=== PATIENT | male | born 1995 | race African-American/Black ===

== ENCOUNTER 2016-11-20 14:45 | Emergency (ER) | payer SELFPAY ==
[~2016-11-20] VITALS: Ht 180.3 cm; Wt 75.0 kg
[~2016-11-20 14:45] MED LIST: ALBU0.63; KETO10 PO; PROM25SU8 PO
[2016-11-20 14:48] VITALS: BP 137/83; PULSE 99; RESP 18; TEMP 98.6; O2SAT 98
[2016-11-20] MEDS ORDERED: OLAN5TAB PO ×2 (14:56→15:29)
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
[2016-11-20] MEDS ORDERED: OLANZapine 5 MG TAB PO ONE (15:30)
== END 2016-11-20 15:54 | disposition home or self-care (01) ==
LOC: NEPD 14:45
DX: F20.9 Schizophrenia, unspecified (principal); F31.9 Bipolar disorder, unspecified; Z76.0 Encounter for issue of repeat prescription
CPT/HCPCS: 99283

== ENCOUNTER 2017-03-13 08:12 | Emergency (ER) | payer OTHER ==
[~2017-03-13] VITALS: Ht 180.3 cm; Wt 79.5 kg
[~2017-03-13 08:12] MED LIST changes: -ALBU0.63; -KETO10 PO; +OLAN5TAB PO; -PROM25SU8 PO
[2017-03-13 08:14] VITALS: BP 143/81; PULSE 84; RESP 18; TEMP 98.2; O2SAT 99
[2017-03-13] MEDS ORDERED: BENZ0.5T PO (08:32)
[2017-03-13] MEDS ORDERED: ABIL10TA8 PO (08:32)
--- NOTE | 2017-03-13 08:49 | PD ---
HPI Chief Complaint: Psychiatric Symptoms Time Seen by Provider: 08:27 Travel History International Travel<30 days: No Contact w/Intl Traveler<30days: No Traveled to known affect area: No History of Present Illness HPI 21-year-old male presents to the emergency department requesting medication refills on his psych meds that he ran out of 2 weeks ago. Takes Abilify, benztropine, olanzapine. He has history of schizophrenia, bipolar. He states he's been having running thoughts of suicide that are going to his head approximately one week during the holidays. He says he would not kill himself, but he continues to have ago to his head. Denies having a plan. He denies history of suicidal attempts. Denies homicidal ideations. Says he feels like he is having outer body experience is at times. He reports auditory and visual hallucinations. He has been trying to smoke marijuana without symptom relief. The marijuana has been exacerbating his symptoms. Denies other illicit drug use. Denies alcohol or tobacco use. He said he felt good on his medications and they help control his thoughts and feeling of depression. Severity is moderate to severe. No known allergies. History of asthma. No established primary care provider. Has no other emergent medical complaints today. No other modifying factors or associated signs and symptoms. PFSH Past Medical History Asthma: Yes Bipolar Disorder: Yes Anxiety: Yes Depression: Yes Psychiatric: Yes (bipolar, schizo-affective disorder) Immunizations Current: Yes Past Surgical History Surgical History: No Previous Surgery Social History Alcohol Use: No Tobacco Use: No Substance Use: Yes Allergies-Medications (Allergen,Severity, Reaction): Coded Allergies: No Known Allergies (Verified Allergy, Unknown, 03/13/17) Reported Meds & Prescriptions Reported Meds & Active Scripts Active Olanzapine 5 Mg Tab 5 Mg PO DAILY Reported Benztropine (Benztropine Mesylate) 0.5 Mg Tab 0.5 Mg PO BID Abilify (Aripiprazole) 10 Mg Tab 10 Mg PO DAILY Review of Systems Except as stated in HPI: all other systems reviewed are Neg Physical Exam Narrative GENERAL: Well-nourished, well-developed black male patient, in no acute distress ; pleasant SKIN: Warm and dry. HEAD: Atraumatic. Normocephalic. EYES: Pupils equal and round. ENT: Mucosa pink and moist. NECK: Supple. Trachea midline. CARDIOVASCULAR: Regular rate and rhythm. No murmur appreciated. RESPIRATORY: No accessory muscle use. Clear to auscultation. Breath sounds equal bilaterally. GASTROINTESTINAL: Abdomen soft, non-tender, nondistended. Hepatic and splenic margins not palpable. Bowel sounds are active 4 quadrants. MUSCULOSKELETAL: No obvious deformities. No clubbing. No cyanosis. No edema. NEUROLOGICAL: Awake and alert. Oriented 3. No obvious cranial nerve deficits. Motor grossly within normal limits. Normal speech. Moves all extremities. 5/5 strength to all extremities. PSYCHIATRIC: No delusional thought processes. No hallucinations. Data Data Last Documented VS Vital Signs Date Time Temp Pulse Resp B/P (MAP) Pulse Ox O2 Delivery O2 Flow Rate FiO2 03/13/17 10:35 97.5 79 18 129/68 (88) 99 03/13/17 08:14 Room Air Orders Orders Complete Blood Count With Diff (03/13/17 08:25) Comprehensive Metabolic Panel (03/13/17 08:25) Psych Screen (03/13/17 08:25) Drug Screen, Random Urine (03/13/17 08:25) Alcohol (Ethanol) (03/13/17 08:25) Salicylates (Aspirin) (03/13/17 08:25) Tylenol (Acetaminophen) (03/13/17 08:25) Diet Regular Basic (03/13/17 Lunch) Olanzapine (Zyprexa) (03/13/17 14:00) Ed Discharge Order (03/13/17 14:20) Labs Laboratory Tests Test 03/13/17 09:00 03/13/17 09:30 White Blood Count 6.1 TH/MM3 Red Blood Count 4.78 MIL/MM3 Hemoglobin 15.1 GM/DL Hematocrit 44.0 % Mean Corpuscular Volume 92.2 FL Mean Corpuscular Hemoglobin 31.5 PG Mean Corpuscular Hemoglobin Concent 34.2 % Red Cell Distribution Width 13.2 % Platelet Count 138 TH/MM3 Mean Platelet Volume 9.1 FL Neutrophils (%) (Auto) 46.1 % Lymphocytes (%) (Auto) 40.8 % Monocytes (%) (Auto) 10.2 % Eosinophils (%) (Auto) 2.5 % Basophils (%) (Auto) 0.4 % Neutrophils # (Auto) 2.8 TH/MM3 Lymphocytes # (Auto) 2.5 TH/MM3 Monocytes # (Auto) 0.6 TH/MM3 Eosinophils # (Auto) 0.2 TH/MM3 Basophils # (Auto) 0.0 TH/MM3 CBC Comment DIFF FINAL Differential Comment Blood Urea Nitrogen 12 MG/DL Creatinine 1.37 MG/DL Random Glucose 84 MG/DL Total Protein 7.8 GM/DL Albumin 4.3 GM/DL Calcium Level 8.7 MG/DL Alkaline Phosphatase 109 U/L Aspartate Amino Transf (AST/SGOT) 28 U/L Alanine Aminotransferase (ALT/SGPT) 41 U/L Total Bilirubin 0.4 MG/DL Sodium Level 139 MEQ/L Potassium Level 3.1 MEQ/L Chloride Level 104 MEQ/L Carbon Dioxide Level 26.5 MEQ/L Anion Gap 9 MEQ/L Estimat Glomerular Filtration Rate 79 ML/MIN Salicylates Level LESS THAN 1.7 MG/DL Acetaminophen Level LESS THAN 2.0 MCG/ML Ethyl Alcohol Level LESS THAN 3 MG/DL Urine Opiates Screen NEG Urine Barbiturates Screen NEG Urine Amphetamines Screen NEG Urine Benzodiazepines Screen NEG Urine Cocaine Screen NEG Urine Cannabinoids Screen POS MDM Medical Decision Making Medical Screen Exam Complete: Yes Emergency Medical Condition: Yes Medical Record Reviewed: Yes Differential Diagnosis Medical clearance for psychiatric admission, medication refill, schizophrenia, bipolar disorder, suicidal ideation Narrative Course Patient presents voluntarily for psych evaluation and medication refill. Physical examination and vital signs are essentially unremarkable. Patient has no medical complaints to report. Psych screen has been ordered. If the laboratory results are unremarkable, the patient will be medically cleared for psychiatric evaluation and disposition. 1424: Ana has evaluated the patient cleared the patient for discharge. Patient contracts safety. Denies suicidal or homicidal ideations. Patient will be provided community resource packet to [facility] for follow-up. Has friends and family for support. Patient was medically cleared by alternate provider prior to psych screening. Patient has been evaluated by psychiatry and and is now cleared for discharge. Diagnosis Primary Impression: Medical clearance for psychiatric admission Additional Impression: Medication refill Referrals: [facility] (Out patient) [facility] Primary Care Physician Psychiatrist Rodo [facility] Additional Instructions: Contract safety to your self and others Follow-up with psychiatry Follow-up with primary care provider Follow-up with Alexis Daley Return to the emergency department immediately with worsening of symptoms Med/Other Pt SpecificInfo: No Change to Meds, No Meds Exist/No RX given Disposition: 01 DISCHARGE HOME Condition: Stable Jaelyn Bacon Mar 13, 2017 08:49
[2017-03-13 09:10] LABS: AUTOMATED NEUTROPHIL # 2.8 TH/MM3 (1.8-7.7); BASOPHIL % 0.4 % (0.0-2.0); EOSINOPHIL # 0.2 TH/MM3 (0-0.4); EOSINOPHIL % 2.5 % (0.0-4.0); HEMOGLOBIN 15.1 GM/DL (13.0-17.0); LYMPH % 40.8 % (9.0-44.0); LYMPHOCYTE # 2.5 TH/MM3 (1.0-4.8); MEAN CELL VOLUME 92.2 FL (80.0-100.0); MEAN CORPUSCULAR HEMOGLOBIN 31.5 PG (27.0-34.0); MEAN CORPUSCULAR HGB CONC 34.2 % (32.0-36.0); MEAN PLATELET VOLUME 9.1 FL (7.0-11.0); MONO % 10.2 % (0.0-8.0); MONOCYTE # 0.6 TH/MM3 (0-0.9); NEUT % 46.1 % (16.0-70.0); PLATELET COUNT 138 TH/MM3 (150-450); RED BLOOD COUNT 4.78 MIL/MM3 (4.50-5.90); RED CELL DISTRIBUTION WIDTH 13.2 % (11.6-17.2); WHITE BLOOD COUNT 6.1 TH/MM3 (4.0-11.0)
[2017-03-13 09:34] LABS: ALKALINE PHOSPHATASE 109 U/L (45-117); ALT (GPT) 41 U/L (12-78); TOTAL BILIRUBIN ADULT 0.4 MG/DL (0.2-1.0); TOTAL PROTEIN 7.8 GM/DL (6.4-8.2)
[2017-03-13 09:36] LABS: ALBUMIN 4.3 GM/DL (3.4-5.0); AST (GOT) 28 U/L (15-37); BICARBONATE 26.5 MEQ/L (21.0-32.0); BLOOD UREA NITROGEN 12 MG/DL (7-18); CALCIUM 8.7 MG/DL (8.5-10.1); CHLORIDE 104 MEQ/L (98-107); CREATININE 1.37 MG/DL (0.60-1.30); GLOMERULAR FILTRATION RATE 79 ML/MIN (>89); GLUCOSE,RANDOM 84 MG/DL (74-106); SODIUM (NA) 139 MEQ/L (136-145)
[2017-03-13 09:46] LABS: ACETAMINOPHEN LESS THAN 2.0 MCG/ML (10.0-30.0)
[2017-03-13 10:35] VITALS: BP 129/68; PULSE 79; RESP 18; TEMP 97.5; O2SAT 99
--- NOTE | 2017-03-13 13:41 | PD ---
History of Present Illness Chief Complaint: Psychiatric Symptoms Time Seen by Provider: 13:30 Travel History International Travel<30 Days: No Contact w/Intl Traveler<30days: No Known affected area: No Legal Status Legal Status: Voluntary History of Present Illness: History of Present Illness HPI 21-year-old male with reported history of bipolar disorder and schizoaffective who presents to the emergency department requesting medication refills on his psych meds that he ran out of 2 weeks ago. He also reports that he had an appointment at [facility] earlier this week but failed to make that appointment. He reported to ED provider that he is prescribed Abilify Takes Abilify, benztropine, olanzapine. He reported to the psychiatric screen her that he wanted to see how he would function without the medication and that's why he stopped it. He has also been smoking marijuana. Electronic medical record is reviewed. The patient was last seen in November 2016 and at that time he presented for medication refill as well. Current toxicology is positive for cannabinoids. Patient is seen as J pod. He was sleeping but awakens fairly easily with verbal stimuli. He is dressed in [facility] with fair hygiene and grooming. He is alert, oriented, cooperative and engaging. Speech is clear and logical. There is no evidence of any unstable mental illness. There is no evidence of any hallucinations, no delusions and no paranoia. No betsy or hypomania symptoms are observed. The patient denies any suicidal or homicidal ideation. He does not report any other complaints except coming to the hospital for a medication refill. He also admits that he functions better when he does have his medication. PFSH Past Medical History Asthma: Yes Bipolar Disorder: Yes Anxiety: Yes Depression: Yes Psychiatric: Yes (bipolar, schizo-affective disorder) Immunizations Current: Yes Past Surgical History Surgical History: No Previous Surgery Psychiatric History Psychiatric History Hx Psychiatric Treatment: Diagnosed with bipolar disorder and schizoaffective disorder in 2014. History of Inpatient Treatment: No Guns or firearms in home: No Social History Single, never . Student at [employer]. He is a sophomore and plans on majoring in criminal Justice. The patient lives with his mother when he is on school break. Hx Alcohol Use: No Hx Tobacco Use: No Hx Substance Use: Yes (marajuana occasional-last 3 days ago) Substance Use Type: Marijuana Hx of Substance Use Treatment: No Family Psychiatric History Negative Allergies-Medications (Allergen,Severity, Reaction): Coded Allergies: No Known Allergies (Verified , 11/20/16) Reported Meds & Prescriptions Reported Meds & Active Scripts Active Olanzapine 5 Mg Tab 5 Mg PO DAILY Reported Benztropine (Benztropine Mesylate) 0.5 Mg Tab 0.5 Mg PO BID Abilify (Aripiprazole) 10 Mg Tab 10 Mg PO DAILY Review of Systems Except as stated in HPI: all other systems reviewed are Neg Mental Status Examination Appearance: Appropriate (in [facility]) Consciousness: Alert Orientation: x4 Motor Activity: Normal gait Speech: Unremarkable Language: Adequate Fund of Knowledge: Adequate Attention and Concentration: Adequate Memory: Unremarkable Mood: Appropriate Affect: Appropriate Thought Process & Associations: Intact Thought Content: Appropriate Hallucination Type: None Delusion Type: None Suicidal Ideation: No Suicidal Plan: No Suicidal Intention: No Homicidal Ideation: No Homicidal Plan: No Homicidal Intention: No Insight: Fair Judgment: Adequate MDM Medical Decision Making Medical Record Reviewed: Yes Assessment/Plan 21-year-old male with reported history of schizoaffective disorder bipolar type who presents to the emergency department on a voluntary basis requesting a medication refill. He reports he's been out of his medications for the past 2 weeks. Patient failed to show up for an appointment at [facility] for initiation of treatment last week. The patient at this time does not present any acute exacerbation of his symptoms. He is not actively psychotic. He is not manic. He is not suicidal or homicidal. He is cognitively intact. Does not appear to be significantly depressed. Extensive psychoeducation is provided. He is encouraged to follow-up with [facility] or his school health services for continued outpatient treatment. Psychiatrically clear for discharge from emergency department Orders Orders Complete Blood Count With Diff (03/13/17 08:25) Comprehensive Metabolic Panel (03/13/17 08:25) Psych Screen (03/13/17 08:25) Drug Screen, Random Urine (03/13/17 08:25) Alcohol (Ethanol) (03/13/17 08:25) Salicylates (Aspirin) (03/13/17 08:25) Tylenol (Acetaminophen) (03/13/17 08:25) Diet Regular Basic (03/13/17 Lunch) Results Vital Signs Date Time Temp Pulse Resp B/P (MAP) Pulse Ox O2 Delivery O2 Flow Rate FiO2 03/13/17 10:35 97.5 79 18 129/68 (88) 99 03/13/17 08:14 98.2 84 18 143/81 (101) 99 Room Air Laboratory Tests Test 03/13/17 09:00 03/13/17 09:30 White Blood Count 6.1 Red Blood Count 4.78 Hemoglobin 15.1 Hematocrit 44.0 Mean Corpuscular Volume 92.2 Mean Corpuscular Hemoglobin 31.5 Mean Corpuscular Hemoglobin Concent 34.2 Red Cell Distribution Width 13.2 Platelet Count 138 Mean Platelet Volume 9.1 Neutrophils (%) (Auto) 46.1 Lymphocytes (%) (Auto) 40.8 Monocytes (%) (Auto) 10.2 Eosinophils (%) (Auto) 2.5 Basophils (%) (Auto) 0.4 Neutrophils # (Auto) 2.8 Lymphocytes # (Auto) 2.5 Monocytes # (Auto) 0.6 Eosinophils # (Auto) 0.2 Basophils # (Auto) 0.0 CBC Comment DIFF FINAL Differential Comment Blood Urea Nitrogen 12 Creatinine 1.37 Random Glucose 84 Total Protein 7.8 Albumin 4.3 Calcium Level 8.7 Alkaline Phosphatase 109 Aspartate Amino Transf (AST/SGOT) 28 Alanine Aminotransferase (ALT/SGPT) 41 Total Bilirubin 0.4 Sodium Level 139 Potassium Level 3.1 Chloride Level 104 Carbon Dioxide Level 26.5 Anion Gap 9 Estimat Glomerular Filtration Rate 79 Salicylates Level LESS THAN 1.7 Acetaminophen Level LESS THAN 2.0 Ethyl Alcohol Level LESS THAN 3 Urine Opiates Screen NEG Urine Barbiturates Screen NEG Urine Amphetamines Screen NEG Urine Benzodiazepines Screen NEG Urine Cocaine Screen NEG Urine Cannabinoids Screen POS Diagnosis Primary Impression: Medical clearance for psychiatric admission Additional Impressions: Medication refill Schizoaffective disorder Psychiatrically Cleared: Yes Med/ Other Pt Specific Info: No Meds Exist/No RX given Disposition: 01 DISCHARGE HOME Condition: Stable Problem Qualifiers Additional Impressions: Schizoaffective disorder Qualified Codes: F25.0 - Schizoaffective disorder, bipolar type Zelaya,Ana Marleny Alcaraz [facility] Mar 13, 2017 13:41
[2017-03-13] MEDS ORDERED: OLANZapine 5 MG TAB PO ONE (14:00)
== END 2017-03-13 15:05 | disposition home or self-care (01) ==
LOC: NEPD 08:12 → NEPJ 15:05
DX: Z76.0 Encounter for issue of repeat prescription (principal); F25.9 Schizoaffective disorder, unspecified; F31.9 Bipolar disorder, unspecified; J45.909 Unspecified asthma, uncomplicated; F41.9 Anxiety disorder, unspecified; F32.9 Major depressive disorder, single episode, unspecified; Z79.899 Other long term (current) drug therapy
CPT/HCPCS: 80053; 80307; 85025; 99284

== ENCOUNTER 2017-03-25 02:32 | Emergency (ER) | payer OTHER ==
[~2017-03-25] VITALS: Ht 180.3 cm; Wt 80.0 kg
[~2017-03-25 02:32] MED LIST changes: +ABIL10TA8 PO; +BENZ0.5T PO
[2017-03-25 02:40] VITALS: BP 133/65; PULSE 92; RESP 16; O2SAT 98
--- NOTE | 2017-03-25 02:55 | PD ---
HPI Chief Complaint: Psychiatric Symptoms Time Seen by Provider: 02:45 Travel History International Travel<30 days: No Contact w/Intl Traveler<30days: No Traveled to known affect area: No History of Present Illness HPI The patient is a 21 year old male who presents to the [facility] emergency department with a history of suicidal ideations that began about "a minute ago. " He has difficulty quantifying exactly how long that is. The patient is brought in to the emergency department under a Toribio act due to erratic behavior at home and reports of suicidal ideations to his mother and the welfare officer. He ran out of his psychiatric medication 2 weeks ago. He reports that he was living in [place] going to school and he recently moved back to the [facility] to live with his mom. He reports that he ran out of the medication and has not gone for a refill. The patient was previously on Abilify and Benztropine. The patient reports having a history of being diagnosed with bipolar disorder and schizoaffective disorder. On review of systems, the patient denies having any recent fevers, cough, congestion, neck pain, chest pain, shortness of breath, abdominal pain, vomiting, diarrhea, urinary symptoms, or neurologic symptoms. The patient denies hearing voices. [facility] Past Medical History Narrative Medical The patient's past medical history is significant for asthma, bipolar, schizoaffective disorder. Asthma: Yes Bipolar Disorder: Yes Anxiety: Yes Depression: Yes Diminished Hearing: No Psychiatric: Yes (bipolar, schizo-affective disorder) Immunizations Current: Yes Past Surgical History Narrative Surgical None. Surgical History: No Previous Surgery Social History Alcohol Use: No Tobacco Use: No Substance Use: Yes (MARIJUANA) Allergies-Medications (Allergen,Severity, Reaction): Coded Allergies: No Known Allergies (Verified Allergy, Unknown, 03/13/17) Reported Meds & Prescriptions Reported Meds & Active Scripts Active Olanzapine 5 Mg Tab 5 Mg PO DAILY Reported Benztropine (Benztropine Mesylate) 0.5 Mg Tab 0.5 Mg PO BID Abilify (Aripiprazole) 10 Mg Tab 10 Mg PO DAILY Review of Systems Except as stated in HPI: all other systems reviewed are Neg General / Constitutional: No: Fever Eyes: No: Visual changes HENT: No: Headaches Cardiovascular: No: Chest Pain or Discomfort Respiratory: No: Shortness of Breath Gastrointestinal: No: Abdominal Pain Genitourinary: No: Dysuria Musculoskeletal: No: Pain Skin: No Rash Neurologic: No: Weakness, Focal Abnormalities, Change in Mentation, Slurred Speech, Sensory Disturbance Psychiatric: Positive: Depression, Suicidal Ideations, Mood Disorder Endocrine: No: Polydipsia Hematologic/Lymphatic: No: Easy Bruising Physical Exam Narrative General: The patient is a well-developed well-nourished male in no acute distress. Head and Neck exam: Head is normocephalic atraumatic. Eyes: EOMI, pupils are equal round and reactive to light. Nose: Midline septum with pink mucous membranes Mouth: Dentition unremarkable. Moist mucus membranes. Posterior oropharynx is not erythematous. No tonsillar hypertrophy. Uvula midline. Airway patent. Neck: No palpable lymphadenopathy. No nuchal rigidity. No thyromegaly. Cardiovascular: Regular rate and rhythm without murmurs, gallops, or rubs. No pulse deficit to the extremities. Lungs: Clear to auscultation bilaterally. No wheezes, rhonchi, or rales. Abdomen: Soft, without tenderness to palpation in all 4 quadrants of the abdomen. No guarding, rebound, or rigidity. Normal bowel sounds are audible. No tenderness on palpation of McBurney's point. Extremities: No clubbing, cyanosis, or edema. 2+ pulses in all 4 extremities. Back: No spinous process tenderness to palpation. No costovertebral angle tenderness to palpation. Neurologic Exam: Grossly nonfocal. Skin Exam: No rash noted. Intact skin that is warm and dry. Data Data Last Documented VS Vital Signs Date Time Temp Pulse Resp B/P (MAP) Pulse Ox O2 Delivery O2 Flow Rate FiO2 03/25/17 02:40 92 16 133/65 (87) 98 Orders Orders Complete Blood Count With Diff (03/25/17 02:52) Comprehensive Metabolic Panel (03/25/17 02:52) Urinalysis - C+S If Indicated (03/25/17 02:52) Psych Screen (03/25/17 02:52) Drug Screen, Random Urine (03/25/17 02:52) Alcohol (Ethanol) (03/25/17 02:52) Labs Laboratory Tests Test 03/25/17 03:00 03/25/17 03:05 Urine Color YELLOW Urine Turbidity CLEAR Urine pH 6.0 Urine Specific [place] 1.039 Urine Protein 30 mg/dL Urine Glucose (UA) NEG mg/dL Urine Ketones NEG mg/dL Urine Occult Blood NEG Urine Nitrite NEG Urine Bilirubin NEG Urine Urobilinogen 2.0 MG/DL Urine Leukocyte Esterase TRACE Urine RBC 2 /hpf Urine WBC 6 /hpf Urine Squamous Epithelial Cells <1 /hpf Urine Calcium Oxalate Crystals OCC /hpf Urine Bacteria RARE /hpf Urine Hyaline Casts 4 /lpf Urine Mucus MANY /lpf Urine Sperm RARE Microscopic Urinalysis Comment CULT NOT INDICATED Urine Opiates Screen NEG Urine Barbiturates Screen NEG Urine Amphetamines Screen NEG Urine Benzodiazepines Screen NEG Urine Cocaine Screen NEG Urine Cannabinoids Screen POS White Blood Count 6.9 TH/MM3 Red Blood Count 4.65 MIL/MM3 Hemoglobin 14.7 GM/DL Hematocrit 42.4 % Mean Corpuscular Volume 91.2 FL Mean Corpuscular Hemoglobin 31.5 PG Mean Corpuscular Hemoglobin Concent 34.6 % Red Cell Distribution Width 13.2 % Platelet Count 160 TH/MM3 Mean Platelet Volume 8.9 FL Neutrophils (%) (Auto) 49.9 % Lymphocytes (%) (Auto) 38.6 % Monocytes (%) (Auto) 9.3 % Eosinophils (%) (Auto) 1.8 % Basophils (%) (Auto) 0.4 % Neutrophils # (Auto) 3.5 TH/MM3 Lymphocytes # (Auto) 2.7 TH/MM3 Monocytes # (Auto) 0.6 TH/MM3 Eosinophils # (Auto) 0.1 TH/MM3 Basophils # (Auto) 0.0 TH/MM3 CBC Comment DIFF FINAL Differential Comment Blood Urea Nitrogen 12 MG/DL Creatinine 1.57 MG/DL Random Glucose 108 MG/DL Total Protein 8.0 GM/DL Albumin 4.5 GM/DL Calcium Level 8.8 MG/DL Alkaline Phosphatase 125 U/L Aspartate Amino Transf (AST/SGOT) 22 U/L Alanine Aminotransferase (ALT/SGPT) 26 U/L Total Bilirubin 0.3 MG/DL Sodium Level 142 MEQ/L Potassium Level 3.6 MEQ/L Chloride Level 107 MEQ/L Carbon Dioxide Level 27.0 MEQ/L Anion Gap 8 MEQ/L Estimat Glomerular Filtration Rate 68 ML/MIN Ethyl Alcohol Level LESS THAN 3 MG/DL [facility] Medical Decision Making Medical Screen Exam Complete: Yes Emergency Medical Condition: Yes Medical Record Reviewed: Yes Differential Diagnosis Bipolar disorder exacerbation with betsy, versus depression with suicidal ideations, versus substance induced mood disorder. Narrative Course During the course of the patients emergency department visit, the patients history, examination, and differential diagnosis were reviewed with the patient. The patient was placed on a agricultural systems specialist with oximetry and frequent blood pressure monitoring. The patient had IV access obtained and blood work sent for analysis. The patient's Toribio act was reviewed. A psychiatric screen was ordered. The patients laboratory studies were reviewed and remarkable for a CBC that is unremarkable, CMP is remarkable for creatinine 1.57, glucose 108, alkaline phosphatase 125, urinalysis culture not indicated. Concentrated urine. The patient was given by mouth hydration. Urine drug screen is positive for cannabinoids, alcohol level is less than 3. The patient has been medically cleared for evaluation by the psychiatric screener and psychiatrist under a Toribio act. Diagnosis Primary Impression: Suicidal ideation Additional Impression: Bipolar disorder Qualified Codes: F31.62 - Bipolar disorder, current episode mixed, moderate Court Currie MD Mar 25, 2017 02:55
[2017-03-25 03:14] LABS: AUTOMATED NEUTROPHIL # 3.5 TH/MM3 (1.8-7.7); BASOPHIL % 0.4 % (0.0-2.0); EOSINOPHIL # 0.1 TH/MM3 (0-0.4); EOSINOPHIL % 1.8 % (0.0-4.0); HEMATOCRIT 42.4 % (39.0-51.0); HEMOGLOBIN 14.7 GM/DL (13.0-17.0); LYMPH % 38.6 % (9.0-44.0); LYMPHOCYTE # 2.7 TH/MM3 (1.0-4.8); MEAN CELL VOLUME 91.2 FL (80.0-100.0); MEAN CORPUSCULAR HEMOGLOBIN 31.5 PG (27.0-34.0); MEAN CORPUSCULAR HGB CONC 34.6 % (32.0-36.0); MEAN PLATELET VOLUME 8.9 FL (7.0-11.0); MONO % 9.3 % (0.0-8.0); MONOCYTE # 0.6 TH/MM3 (0-0.9); NEUT % 49.9 % (16.0-70.0); PLATELET COUNT 160 TH/MM3 (150-450); RED BLOOD COUNT 4.65 MIL/MM3 (4.50-5.90); RED CELL DISTRIBUTION WIDTH 13.2 % (11.6-17.2); WHITE BLOOD COUNT 6.9 TH/MM3 (4.0-11.0)
[2017-03-25 03:18] LABS: BACTERIA, URINE RARE /hpf; BILIRUBIN, URINE NEG (NEG); BLOOD, URINE NEG (NEG); CALCIUM OXALATE CRYSTALS,URINE OCC /hpf; GLUCOSE,URINE NEG (NEG); HYALINE CAST, URINE 4 /lpf (RARE); KETONE, URINE NEG (NEG); MUCUS URINE MANY /lpf (OCC); NITRITE,URINE NEG (NEG); SPERM, URINE RARE; SQUAMOUS EPITHELIAL CELL URINE <1 /hpf (0-5); URINE COLOR YELLOW (YELLW/STRAW); URINE LEUKOCYTE ESTERASE TRACE (NEG)
[2017-03-25 03:29] LABS: ALBUMIN 4.5 GM/DL (3.4-5.0); ALT (GPT) 26 U/L (12-78); AST (GOT) 22 U/L (15-37); BLOOD UREA NITROGEN 12 MG/DL (7-18); CALCIUM 8.8 MG/DL (8.5-10.1); CHLORIDE 107 MEQ/L (98-107); CREATININE 1.57 MG/DL (0.60-1.30); GLOMERULAR FILTRATION RATE 68 ML/MIN (>89); GLUCOSE,RANDOM 108 MG/DL (74-106); SODIUM (NA) 142 MEQ/L (136-145)
[2017-03-25 03:31] LABS: ALKALINE PHOSPHATASE 125 U/L (45-117); TOTAL BILIRUBIN ADULT 0.3 MG/DL (0.2-1.0)
[2017-03-25 12:02] VITALS: BP 121/57; PULSE 67; RESP 18; TEMP 97.9; O2SAT 100
[2017-03-25 12:57] VITALS: BP 103/54; PULSE 59; RESP 16; TEMP 98.6; O2SAT 100
[2017-03-25 18:13] VITALS: BP 135/62; PULSE 69; RESP 16; O2SAT 99
== END 2017-03-25 20:47 ==
LOC: NEPE 02:32 → NEPJ 20:47
DX: R45.851 Suicidal ideations (principal); F31.62 Bipolar disorder, current episode mixed, moderate; F25.9 Schizoaffective disorder, unspecified; J45.909 Unspecified asthma, uncomplicated
CPT/HCPCS: 80053; 80307; 81001; 85025; 99285